=== PATIENT | female | born 1995 | race Two or more races ===

== ENCOUNTER 2020-04-24 16:53 | Inpatient (IN) | payer BC, SELFPAY ==
[~2020-04-24] VITALS: Ht 154.9 cm; Wt 77.5 kg
[2020-04-24 17:37] LABS: HEMATOCRIT 45.5 % (36.0-47.0); HEMOGLOBIN 15.4 g/dl (12.0-15.5); MEAN CORPUSCULAR HEMOGLOBIN 31.1 pg (27.0-33.0); MEAN CORPUSCULAR HGB CONC 33.8 g/dl (32.0-36.5); MEAN CORPUSCULAR VOLUME 91.9 fl (80.0-96.0); PLATELET COUNT, AUTOMATED 384 10^3/uL (150-450); RED BLOOD COUNT 4.95 10^6/uL (4.00-5.40)
[2020-04-24 18:04] LABS: HCG, SERUM QUALITATIVE NEGATIVE (NEGATIVE)
[2020-04-24 18:29] LABS: ACETAMINOPHEN LEVEL < 2.0 UG/ML (10.0-30.0); ALBUMIN 4.6 GM/DL (3.2-5.2); ALT/SGPT 53 U/L (12-78); BILIRUBIN,DIRECT 0.4 MG/DL (0.0-0.2); BILIRUBIN,TOTAL 2.1 MG/DL (0.2-1.0); BLOOD UREA NITROGEN 9 MG/DL (7-18); CALCIUM LEVEL 9.3 MG/DL (8.5-10.1); CARBON DIOXIDE LEVEL 26 MEQ/L (21-32); CHLORIDE LEVEL 103 MEQ/L (98-107); CREATININE FOR GFR 0.95 MG/DL (0.55-1.30); ETHYL ALCOHOL (ETHANOL) < 0.003 % (0.000-0.010); GLOMERULAR FILTRATION RATE > 60.0 (>60); GLUCOSE, FASTING 85 MG/DL (70-100); POTASSIUM SERUM 3.6 MEQ/L (3.5-5.1); SALICYLATE LEVEL < 1.7 MG/DL (5.0-30.0); SODIUM LEVEL 141 MEQ/L (136-145); THYROID STIMULATING HORMONE 0.733 uIU/ML (0.358-3.740); TOTAL PROTEIN 8.1 GM/DL (6.4-8.2)
[2020-04-24 19:42] LABS: AMPHETAMINES LEVEL URINE NEGATIVE (NEGATIVE); BARBITURATES URINE NEGATIVE (NEGATIVE); BENZODIAZEPINES URINE NEGATIVE (NEGATIVE); CANNABINOIDS URINE POSITIVE (NEGATIVE); COCAINE METABOLITE URINE NEGATIVE (NEGATIVE); METHADONE URINE NEGATIVE (NEGATIVE); OPIATES URINE NEGATIVE (NEGATIVE); PHENCYCLIDINE URINE NEGATIVE (NEGATIVE)
--- NOTE | 2020-04-24 20:09 | REPVR ---
PROCEDURE INFORMATION: Exam: CT Head Without Contrast Exam date and time: 04/24/2020 8:01 PM Age: 25 years old Clinical indication: Altered mental status/memory loss; Additional info: Alterd loc TECHNIQUE: Imaging protocol: Computed tomography of the head without contrast. Radiation optimization: All CT scans at this facility use at least one of these dose optimization techniques: automated exposure control; mA and/or kV adjustment per patient size (includes targeted exams where dose is matched to clinical indication); or iterative reconstruction. COMPARISON: No relevant prior studies available. FINDINGS: Brain: No intracranial mass, mass effect or midline shift. No acute intracranial hemorrhage. No CT evidence of acute cortical infarct. Ventricles: Ventricles, cisterns, and sulci are normal in size for age. Bones/joints: No calvarial fracture or destructive process. Sinuses: Imaged paranasal sinuses are clear. Mastoid air cells: Mastoid air cells are normally aerated. Orbits: Imaged orbits are unremarkable. Soft tissues: No focal extracranial soft tissue swelling. IMPRESSION: No acute or concerning focal intracranial abnormality. Electronically signed by: Zac Grover On 04/24/2020 20:08:58 PM
[2020-04-24] MEDS ORDERED: OLANZapine 5 MG TAB PO ONE (21:45)
[2020-04-25 04:07] VITALS: BP 149/84
[2020-04-25 15:47] VITALS: BP 171/82
--- NOTE | 2020-04-25 17:38 | HPEPDOC ---
General Date of Admission Apr 24, 2020 at 23:43 Date of Service: Apr 25, 2020 Chief Complaint The patient is a 25-year-old female admitted with a reason for visit of Unspecified Psychotic Disorder. Source: Patient Exam Limitations: No limitations Timing/Duration: Day(s) Severity: Moderate History of Present Illness Patient is 25 years old female without significant past medical history presented to the hospital with acute psychosis. Patient has tangental thoughts and she is a poor historian. Patient stated that she is in the process of transitioning from female to male and she takes testosterone supplementation. Patient is very concerned about possibility of cancer, she thinks she has an enlarged lymph nodes on the neck. However I did not find an large lymph node Patient denied fever, chills, nausea, vomiting, diarrhea or dysuria. Home Medications No Active Prescriptions or Reported Meds Allergies Coded Allergies: No Known Allergies (Verified Allergy, Unknown, 04/24/20) Past Medical History Medical History No significant past medical history Family History Both parents are alcoholics Father has coronary artery diseases Social History * Smoker: current smoker Alcohol: heavy Drugs: marijuana A-FIB/CHADSVASC A-FIB History Current/History of A-Fib/PAF?: No Current PO Anticoag Therapy: No Review of Systems Constitutional: Denies: Chills Eyes: Denies: Pain ENT: Denies: Head Aches Skin: Denies: Rash Pulmonary: Denies: Dyspnea Cardiovascular: Denies: Chest Pain Gastrointestinal: Denies: Nausea, Vomiting Genitourinary: Denies: Dysuria Hematologic: Denies: Bruising, Bleeding Excessively Endocrine: Denies: Polydipsia Musculoskeletal: Denies: Neck Pain Neurological: Denies: Weakness Psych: Denies: Mood Normal Physical Examination General Exam: Positive: Alert, Cooperative, Moderate Distress Eye Exam: Positive: PERRLA ENT Exam: Positive: Atraumatic Neck Exam: Positive: Supple; Negative: JVD Chest Exam: Positive: Clear to auscultation Heart Exam: Positive: Rate Normal Telemetry: Positive: No significant arrhythmia Abdomen Exam: Positive: Normal bowel sounds Extremity Exam: Negative: Clubbing Neuro Exam: Positive: Strength at 5/5 X4 ext Psych Exam: Negative: Mental status NL Vital Signs Vital Signs Date Time Temp Pulse Resp B/P (MAP) Pulse Ox O2 Delivery O2 Flow Rate FiO2 04/25/20 15:47 99.3 101 16 171/82 (111) 04/25/20 04:07 96 Room Air Laboratory Data Labs 24H Laboratory Tests 2 04/24/20 19:11: Urine Opiates Screen NEGATIVE, Urine Methadone Screen NEGATIVE, Urine Barbiturates Screen NEGATIVE, Urine Phencyclidine Screen NEGATIVE, Urine Amphetamines Screen NEGATIVE, Urine Benzodiazepines Screen NEGATIVE, Urine Cocaine Metabolite Screen NEGATIVE, Urine Cannabinoids Screen POSITIVEH Assessment/Plan Patient is 25 years old female without significant past medical history presented to the hospital with acute psychosis. Patient has tangental thoughts and she is a poor historian. Patient stated that she is in the process of transitioning from female to male and she takes testosterone supplementation. Patient is very concerned about possibility of cancer, she thinks she has an enlarged lymph nodes on the neck. However I did not find an large lymph node Patient denied fever, chills, nausea, vomiting, diarrhea or dysuria. Problems (1) Psychosis Status: Acute Problem Text: We'll defer treatment to psych team Plan / VTE VTE Prophylaxis Ordered?: No VTE Exclusion Mechanical Proph: Low Risk for VTE LISA STARR DO Apr 25, 2020 17:38
[2020-04-25] MEDS: OLANZapine 10 MG TAB PO SCH (21:54)
[2020-04-25] MEDS: traZODone 50 MG TAB PO PRN (21:54)
[2020-04-25] MEDS: OLANZapine ORAL DISINTEGRATING TAB 5MG PO PRN (23:29)
[2020-04-25] MEDS: ACETAMINOPHEN TAB 650MG DOSE (2X325MG) PO PRN (23:33)
[2020-04-26 06:28] VITALS: BP 142/79
--- NOTE | 2020-04-26 10:36 | MHHPE ---
DATE OF ADMISSION: 04/24/2020 DATE OF EVALUATION: 04/25/2020 HISTORY OF PRESENT ILLNESS: This evaluation is done telepsychiatry do to the current coronavirus crisis. This is a 25-year-old woman who is a transgender individual and prefers to be referred to as Héctor. The patient was brought to the hospital by [employer] police only this patient lives in [place] and had taken off driving to go visit a friend. She kept driving past where the friend lives. The car broke down and then she ended up walking to the friend wandering in the road and barefoot making no sense. She was taken to a motel and she got in contact with the mother who is going to give her money for bus ride home. However, the patient did not go home. The patient then called her mother and told her mother that there were evil voices telling her to keep driving north to [place], [place] are [place]. When asked how she was going to get there because she had no car. She talks about somebody named Leonel, whom she says is an actor on TV that is going to bring her a car. She is talking about having to close all the portals so all evil spirits will not be able to get through the portals. She talks about being telepathically connected to people. The mother apparently was contacted through the emergency room and advised that the patient has never had any psychotic episode before. She states that the patient was on Prozac for depression in the past but she stopped it in July because she found all of the patient's bottles. Today, speaking to the patient who appeared cooperative, however, I could not get any information that made any sense. The patient closed his eyes and kept lifting his head up and put his arms out and kept moving them in and out, in and out, basically was talking but it did not really make any sense what he was saying. So I was not able to get any further in this evaluation. PAST PSYCHIATRIC HISTORY: Unable to obtained. FAMILY HISTORY: Unable to obtain. SUBSTANCE ABUSE HISTORY: Unable to obtain. Toxicology screen was positive for cannabis. ABUSE HISTORY: Unable to obtain. MEDICAL HISTORY: Patient is transgender and on testosterone supplements once a week. REVIEW OF SYSTEMS: Vital Signs: Blood pressure 149/84, pulse 74, respirations 18. Unable to proceed with any review of systems. MENTAL STATUS EXAMINATION: Unable to obtain. DIAGNOSES: Unspecific psychotic disorder. Cannabis use disorder. TREATMENT PLAN: At this point, we will continue to monitor the patient for what appears to be psychotic symptoms. It will be important in this case to try to get some collateral information from the patient's mother. I did order some Zyprexa 10 mg every 4 hours for anxiety or agitation. I will go ahead and order some Zyprexa 10 mg nightly. He apparently was given some Zyprexa in the emergency room. GILMAR
[2020-04-26] MEDS: NICOTINE 21MG/24HR 1 EA TRANSDERMAL TD PRN (14:27)
[2020-04-26] MEDS: OLANZapine ORAL DISINTEGRATING TAB 5MG PO PRN (14:27)
[2020-04-26 16:32] VITALS: BP 131/75
--- NOTE | 2020-04-26 18:56 | MHIPN ---
DATE: 04/26/2020 The patient today continues to be pretty delusional. However, he is able to speak more spontaneously and answer some questions today. He has no insight about his illness. He states, "I just have a lot of kyree and no one believes in me. I encompass old spirits that I can, and it gives me the connectiveness I need." MENTAL STATUS EXAM: The patient is alert, oriented. Eye contact is improved. He is verbally spontaneous. There is no formal thought disorder noted. He says that his mood is good. Affect appropriate to the mood. The patient did not voice any suicidal or homicidal ideations. He has grandiose delusions, and her concentration is fair. Memory is intact. Insight and judgment is poor. DIAGNOSIS: Psychotic disorder, rule out unspecified bipolar disorder. Cannabis use disorder. TREATMENT PLAN: At this point, the patient continues to be very delusional. Her insight is very poor. She did take the Zyprexa 10 mg that I prescribed for her last night. We will continue to monitor the patient and see if we need to adjust her medications further. GILMAR
[2020-04-26] MEDS: OLANZapine 10 MG TAB PO SCH (20:02)
[2020-04-26] MEDS: traZODone 50 MG TAB PO PRN (20:02)
[2020-04-27] MEDS: OLANZapine ORAL DISINTEGRATING TAB 5MG PO PRN ×2 (03:42→17:12)
[2020-04-27 06:27] VITALS: BP 121/68
[2020-04-27] MEDS: NICOTINE 21MG/24HR 1 EA TRANSDERMAL TD PRN (07:52)
[2020-04-27] MEDS ORDERED: TESTOSTERONE CYPIONATE 200 MG/ML IM SCH ×2 (13:00→14:00)
[2020-04-27] MEDS ORDERED: NON-FORMULARY 1 EA EA IM SCH (13:00)
[2020-04-27] MEDS: TESTOSTERONE CYPIONATE 200 MG/ML XX SCH (14:21)
[2020-04-27] MEDS: ACETAMINOPHEN TAB 650MG DOSE (2X325MG) PO PRN (14:40)
[2020-04-27 16:23] VITALS: BP 143/84
[2020-04-27] MEDS: OLANZapine 5 MG TAB PO SCH (21:37)
[2020-04-27] MEDS: traZODone 50 MG TAB PO PRN (21:37)
[2020-04-28] MEDS: ACETAMINOPHEN TAB 650MG DOSE (2X325MG) PO PRN ×2 (05:10→14:39)
[2020-04-28 06:20] VITALS: BP 140/77
--- NOTE | 2020-04-28 09:19 | MHIPNPDOC ---
[facility] [place] DATE OF SERVICE: 04/28/20 HPI: Yessi presents today for concerns regarding her mental mental health . Yessi does remember walking into the hospital. Yessi denies any suicidal suicidal t houghts , homicidal thoughts, and hallucinations. MEDICATIONS: She is on Zyprexa during her stay, and was seen by Dr. Eagle Sunday, which means the dose was likely increased . Objective Appearance: Appears fair. Speech: Soft volume. Normal rate. Cognition: Grossly intact. Associations are mildly loosened. Thought Form: Linear thought process is somewhat circumstantial. Thought Content: Devising suicidal or homicidal ideations. Perception: Mild psychotic perceptions. Assessment F29 Unspecified psychosis not due to a substance or known physiological condition F12.959 Cannabis use, unspecified with psychotic disorder, unspecified Plan She is a 25-year-old transgendered man, who presents In a psychotic state. Making some progress on Zyprexa 15 mg. She will continue Zyprexa 15 mg. Further plan for discharge as he returns to baseline. Further collateral formation will likely determine the patients baseline and what would be the most judicious discharge plan at this time. Vital Signs Vital Signs Date Time Temp Pulse Resp B/P (MAP) Pulse Ox O2 Delivery O2 Flow Rate FiO2 04/28/20 06:20 97.1 112 18 140/77 (98) Room Air 04/27/20 06:27 98 Current Medications Current Medications Medications (Trade) Dose Ordered Sig/Kenrick Route PRN Reason Start Time Stop Time Status Last Admin Dose Admin Acetaminophen (Tylenol Tab) 650 mg Q6HP PRN PO PAIN / FEVER 04/25/20 06:00 04/28/20 05:10 Al Hydrox/Mg Hydrox/Simethicone (Mylanta) 30 ml Q6HP PRN PO HEARTBURN 04/25/20 06:00 Home Med (Med Rec Complete!) ASDIRECTED XX 04/24/20 20:45 04/24/20 20:38 DC Magnesium Hydroxide (Milk Of Magnesia) 30 ml DAILYPRN PRN PO CONSTIPATION 04/25/20 06:00 Nicotine (Nicoderm Cq 21mg) 1 patch DAILYPRN PRN TD NICOTINE WITHDRAWAL 04/25/20 06:30 04/27/20 07:52 Non-Formulary Medication Testosterone Cypiionate 200 mg/1... Q7D IM 04/27/20 13:00 04/26/20 15:59 DC Olanzapine (ZyPREXA ZYDIS) 10 mg Q4HP PRN PO anxiety/agitation 04/25/20 02:00 04/27/20 17:12 Olanzapine (ZyPREXA) 10 mg QHS PO 04/25/20 21:00 04/27/20 12:54 DC 04/26/20 20:02 Olanzapine (ZyPREXA) 15 mg QHS PO 04/27/20 21:00 04/27/20 21:37 Testosterone Cypionate (Depo-Testosterone) 60 mg Q7D IM 04/27/20 13:00 04/27/20 13:09 DC Testosterone Cypionate (Testosterone Cypionate) 60 mg Q7D IM 04/27/20 14:00 04/27/20 14:19 DC Testosterone Cypionate (Testosterone Cypionate) 60 mg Q7D XX 04/27/20 14:19 04/27/20 14:21 Trazodone HCl (Desyrel) 50 mg QHSP PRN PO INSOMNIA 04/25/20 06:00 04/27/20 21:37 Allergies Coded Allergies: No Known Allergies (Verified Allergy, Unknown, 04/24/20) MARY LEAHY DO Apr 28, 2020 09:19
[2020-04-28] MEDS: NICOTINE 21MG/24HR 1 EA TRANSDERMAL TD PRN (13:03)
[2020-04-28] MEDS: OLANZapine ORAL DISINTEGRATING TAB 5MG PO PRN (13:04)
--- NOTE | 2020-04-28 14:45 | MHIPN ---
DATE OF SERVICE: 04/27/2020 The patient was seen via telepsychiatry due to the Coronavirus crisis. The patient was reported to have been taking her clothes off last night. Tried to pull the fire alarm. She was talking about dark and light entities and how she sees them at night. When asked today how she was doing, she said "really, really good today." She admitted that "I keep hearing and seeing things that are not real." She says that she found out that her family is the Gil family, but that her real mother saved her. MENTAL STATUS EXAMINATION: This patient is alert ands oriented times three. Eye contact is fair. Psychomotor activity is increased. She does have some pressured speech, flight of ideas. She says her mood is very, very good but her affect is some labile. She remains acutely delusional. She denies being suicidal or homicidal. Concentration is fair. Memory intact. Insight and judgment poor. DIAGNOSIS: Unspecified psychotic disorder, rule out bipolar disorder. Cannabis use disorder. TREATMENT PLAN: At this point, the patient continues to be very delusional. She is tolerating her Zyprexa. I will go ahead and increase the Zyprexa to 15 mg a day. MTDD
[2020-04-28 16:21] VITALS: BP 136/72
[2020-04-28] MEDS: traZODone 50 MG TAB PO PRN (20:16)
[2020-04-28] MEDS: OLANZapine 5 MG TAB PO SCH (20:16)
[2020-04-29] MEDS ORDERED: haloperidoL 5 MG TAB PO ONE (00:30)
[2020-04-29 06:11] VITALS: BP 131/74
[2020-04-29] MEDS: ACETAMINOPHEN TAB 650MG DOSE (2X325MG) PO PRN ×2 (06:59→23:02)
--- NOTE | 2020-04-29 09:44 | MHIPNPDOC ---
[facility] Progress Note Progress Note DATE OF SERVICE: 04/29/20 Yessi presents today for concerns regarding her follow up. She had an accident where she had an episode and poured water on herself. She also complains of havi ng trouble sleeping. Yessi describes some side effects of her medication. She says that her face gets bright red, and it feels like it is getting hot. She also complains of sinus problems. MEDICATIONS: Yessi is taking Zyprexa. She is also taking Trazadone. She is also taking Haldol. Objective Appearance: Well nourished. Well groomed. Behavior: Pleasant. Engaged. Affect:blunted range Mood: flat Speech: Speech is slowed and monotonus. Normal volume. Motor: No gross motor abnormalities. Cognition: Perceptions appear to be presen but flat. Memory: No gross abnormalities of short or longterm memory noted during interview. No formal testing. Thought Form: Linear and goal directed. Not entirely logical. Thought Content: No thoughts of self harm. No evidence of aggressive or homicidal ideation. No evidence of delusions. No evidence of suicidal ideation. Perception: No perceptual abnormalities noted. Judgement: limited Insight: limited Assessment F29 Unspecified psychosis not due to a substance or known physiological condition Plan Increase Zyprexa to 5 mg in the morning and 15 mg at night. Start Protonix. Start 50 mg Hydroxyzine. Start using Afrin for nasal congestion. Start gerd treatment. Stop Trazadone. If Zyprexa does not continue to improve the symptoms significantly, will need to see about changing agents. No discharge date as of yet. Vital Signs Vital Signs Date Time Temp Pulse Resp B/P (MAP) Pulse Ox O2 Delivery O2 Flow Rate FiO2 04/29/20 06:11 97.1 76 12 131/74 (93) Room Air 04/27/20 06:27 98 Current Medications Current Medications Medications (Trade) Dose Ordered Sig/Kenrick Route PRN Reason Start Time Stop Time Status Last Admin Dose Admin Acetaminophen (Tylenol Tab) 650 mg Q6HP PRN PO PAIN / FEVER 04/25/20 06:00 04/29/20 06:59 Al Hydrox/Mg Hydrox/Simethicone (Mylanta) 30 ml Q6HP PRN PO HEARTBURN 04/25/20 06:00 Home Med (Med Rec Complete!) ASDIRECTED XX 04/24/20 20:45 04/24/20 20:38 DC Magnesium Hydroxide (Milk Of Magnesia) 30 ml DAILYPRN PRN PO CONSTIPATION 04/25/20 06:00 Nicotine (Nicoderm Cq 21mg) 1 patch DAILYPRN PRN TD NICOTINE WITHDRAWAL 04/25/20 06:30 04/28/20 13:03 Non-Formulary Medication Testosterone Cypiionate 200 mg/1... Q7D IM 04/27/20 13:00 04/26/20 15:59 DC Olanzapine (ZyPREXA ZYDIS) 10 mg Q4HP PRN PO anxiety/agitation 04/25/20 02:00 04/28/20 13:04 Olanzapine (ZyPREXA) 10 mg QHS PO 04/25/20 21:00 04/27/20 12:54 DC 04/26/20 20:02 Olanzapine (ZyPREXA) 15 mg QHS PO 04/27/20 21:00 04/28/20 20:16 Testosterone Cypionate (Depo-Testosterone) 60 mg Q7D IM 04/27/20 13:00 04/27/20 13:09 DC Testosterone Cypionate (Testosterone Cypionate) 60 mg Q7D IM 04/27/20 14:00 04/27/20 14:19 DC Testosterone Cypionate (Testosterone Cypionate) 60 mg Q7D XX 04/27/20 14:19 04/27/20 14:21 Trazodone HCl (Desyrel) 50 mg QHSP PRN PO INSOMNIA 04/25/20 06:00 04/28/20 20:16 Allergies Coded Allergies: No Known Allergies (Verified Allergy, Unknown, 04/24/20) MARY LEAHY DO Apr 29, 2020 09:44
[2020-04-29] MEDS: OLANZapine ORAL DISINTEGRATING TAB 5MG PO PRN (09:53)
[2020-04-29] MEDS: NICOTINE 21MG/24HR 1 EA TRANSDERMAL TD PRN (11:28)
[2020-04-29] MEDS ORDERED: hydrOXYzine 50 MG TAB PO PRN (16:15)
[2020-04-29 17:38] VITALS: BP 144/85
[2020-04-29] MEDS: PANTOPRAZOLE 20 MG TAB PO SCH (18:07)
[2020-04-29] MEDS: hydrOXYzine 50 MG TAB PO PRN (20:56)
[2020-04-29] MEDS: OLANZapine 5 MG TAB PO SCH (20:57)
[2020-04-30] MEDS: OLANZapine ORAL DISINTEGRATING TAB 5MG PO PRN (03:51)
[2020-04-30 06:45] VITALS: BP 138/79
[2020-04-30] MEDS ORDERED: ONDANSETRON 4 MG ORAL DISINTEGRATING TAB SL ONE (07:00)
[2020-04-30] MEDS: PANTOPRAZOLE 20 MG TAB PO SCH (08:25)
[2020-04-30] MEDS: OLANZapine 5 MG TAB PO SCH ×2 (08:25→21:16)
[2020-04-30] MEDS: OXYMETAZOLINE 0.05% NASAL SPRAY (AFRIN) PRN (08:26)
[2020-04-30] MEDS: NICOTINE 21MG/24HR 1 EA TRANSDERMAL TD PRN (08:26)
--- NOTE | 2020-04-30 09:21 | MHIPNPDOC ---
[facility] Progress Note Progress Note DATE OF SERVICE: 04/30/20 Keshia presents today for a follow up. He says he is feeling really good today. He says his confusion is clearing up. He does not have any side effects, such as headaches, vision changes, stomach issues, shakiness, or jitteriness; but he has been nauseous. He is still delusional, the nurse notes that this morning she was talking about being molested, but is better in this afternoon. The nurse notes there is an improvement with the medication. MEDICATIONS: The increased Zyprexa for the morning dose, works a lot better for him. He says he is having trouble falling asleep. He is not taking Hydroxyzine, but he can ask for it if needed. He was initially on 20 mg of Protonix and will increase to 40 mg, as requested, which will help with the upset stomach from Zyprexa. Objective Affect: Bizzare with psychotic perceptions. Dissheveled flat affect. Speech: Very soft voice. Normal rate. Motor: Demonstrates some slowing. Cognition: Appears slowed. Judgement: Poor judgement. Assessment F29 Unspecified psychosis not due to a substance or known physiological condition Plan Continue Zyprexa, 5/15 mg per day. Take Hydroxyzine 50 mg at night as needed for sleep. Will need continued observation. Increase Protonix to 40 mg daily for upset stomach related to GI. Discuss with oncoming physician for disposition and further treatment. If he does not resolve well with the Zyprexa, consider alternative agents, as he is making slow progress at this time. Vital Signs Vital Signs Date Time Temp Pulse Resp B/P (MAP) Pulse Ox O2 Delivery O2 Flow Rate FiO2 04/30/20 06:45 98.3 85 14 138/79 (98) Room Air 04/29/20 17:38 98 Current Medications Current Medications Medications (Trade) Dose Ordered Sig/Kenrick Route PRN Reason Start Time Stop Time Status Last Admin Dose Admin Acetaminophen (Tylenol Tab) 650 mg Q6HP PRN PO PAIN / FEVER 04/25/20 06:00 04/29/20 23:02 Al Hydrox/Mg Hydrox/Simethicone (Mylanta) 30 ml Q6HP PRN PO HEARTBURN 04/25/20 06:00 Home Med (Med Rec Complete!) ASDIRECTED XX 04/24/20 20:45 04/24/20 20:38 DC Hydroxyzine HCl (Atarax) 50 mg QHSP PRN PO sleep 04/29/20 16:30 04/29/20 20:56 Hydroxyzine HCl (Atarax) 100 mg QHSP PRN PO sleep 04/29/20 16:15 04/29/20 16:16 DC Magnesium Hydroxide (Milk Of Magnesia) 30 ml DAILYPRN PRN PO CONSTIPATION 04/25/20 06:00 Nicotine (Nicoderm Cq 21mg) 1 patch DAILYPRN PRN TD NICOTINE WITHDRAWAL 04/25/20 06:30 04/30/20 08:26 Non-Formulary Medication Testosterone Cypiionate 200 mg/1... Q7D IM 04/27/20 13:00 04/26/20 15:59 DC Olanzapine (ZyPREXA ZYDIS) 10 mg Q4HP PRN PO anxiety/agitation 04/25/20 02:00 04/30/20 03:51 Olanzapine (ZyPREXA) 5 mg DAILY PO 04/30/20 09:00 04/30/20 08:25 Olanzapine (ZyPREXA) 10 mg QHS PO 04/25/20 21:00 04/27/20 12:54 DC 04/26/20 20:02 Olanzapine (ZyPREXA) 15 mg QHS PO 04/27/20 21:00 04/29/20 20:57 Oxymetazoline HCl (Afrin) 2 spray BIDP PRN NA nasal congestion 04/29/20 16:15 04/30/20 08:26 Pantoprazole Sodium (Protonix) 20 mg DAILY PO 04/29/20 09:00 04/30/20 08:25 Testosterone Cypionate (Depo-Testosterone) 60 mg Q7D IM 04/27/20 13:00 04/27/20 13:09 DC Testosterone Cypionate (Testosterone Cypionate) 60 mg Q7D IM 04/27/20 14:00 04/27/20 14:19 DC Testosterone Cypionate (Testosterone Cypionate) 60 mg Q7D XX 04/27/20 14:19 04/27/20 14:21 Trazodone HCl (Desyrel) 50 mg QHSP PRN PO INSOMNIA 04/25/20 06:00 04/29/20 16:14 AK 04/28/20 20:16 Allergies Coded Allergies: No Known Allergies (Verified Allergy, Unknown, 04/24/20) MARY LEAHY DO Apr 30, 2020 09:21
[2020-04-30] MEDS: MAALOX 30 ML SUSP *UDC PO PRN (11:08)
[2020-04-30] MEDS: ACETAMINOPHEN TAB 650MG DOSE (2X325MG) PO PRN ×2 (15:48→23:12)
[2020-04-30 16:04] VITALS: BP 135/85
[2020-04-30] MEDS: hydrOXYzine 50 MG TAB PO PRN (21:16)
[2020-04-30] MEDS ORDERED: haloperidoL 5 MG TAB PO ONE (23:00)
[2020-05-01 06:17] VITALS: BP 129/77
[2020-05-01] MEDS: PANTOPRAZOLE 20 MG TAB PO SCH (08:42)
[2020-05-01] MEDS: OLANZapine 5 MG TAB PO SCH ×2 (08:42→20:09)
[2020-05-01] MEDS: OLANZapine ORAL DISINTEGRATING TAB 5MG PO PRN (13:48)
[2020-05-01] MEDS: ACETAMINOPHEN TAB 650MG DOSE (2X325MG) PO PRN ×2 (13:49→20:10)
[2020-05-01 16:10] VITALS: BP 140/72
[2020-05-01] MEDS: OXYMETAZOLINE 0.05% NASAL SPRAY (AFRIN) PRN (20:52)
[2020-05-01] MEDS: hydrOXYzine 50 MG TAB PO PRN (20:54)
[2020-05-02] MEDS: MAALOX 30 ML SUSP *UDC PO PRN (05:25)
[2020-05-02 06:24] VITALS: BP 132/90
[2020-05-02] MEDS: OLANZapine 5 MG TAB PO SCH ×2 (09:06→20:19)
[2020-05-02] MEDS: PANTOPRAZOLE 20 MG TAB PO SCH (09:06)
[2020-05-02] MEDS: ACETAMINOPHEN TAB 650MG DOSE (2X325MG) PO PRN ×3 (09:08→22:56)
[2020-05-02] MEDS: OLANZapine ORAL DISINTEGRATING TAB 5MG PO PRN (16:05)
[2020-05-02 16:07] VITALS: BP 133/80
[2020-05-02] MEDS: NICOTINE 21MG/24HR 1 EA TRANSDERMAL TD PRN (16:49)
[2020-05-02] MEDS: hydrOXYzine 50 MG TAB PO PRN (20:18)
[2020-05-02] MEDS: OXYMETAZOLINE 0.05% NASAL SPRAY (AFRIN) PRN (20:18)
[2020-05-03 06:24] VITALS: BP 139/89
[2020-05-03] MEDS: MAALOX 30 ML SUSP *UDC PO PRN (06:25)
[2020-05-03] MEDS: ACETAMINOPHEN TAB 650MG DOSE (2X325MG) PO PRN ×3 (06:25→21:26)
[2020-05-03] MEDS: hydrOXYzine 50 MG TAB PO PRN (07:08)
[2020-05-03] MEDS: OLANZapine 5 MG TAB PO SCH ×2 (09:12→21:25)
[2020-05-03] MEDS: PANTOPRAZOLE 20 MG TAB PO SCH (09:12)
[2020-05-03] MEDS: OLANZapine ORAL DISINTEGRATING TAB 5MG PO PRN (12:45)
[2020-05-03] MEDS: OXYMETAZOLINE 0.05% NASAL SPRAY (AFRIN) PRN (15:48)
[2020-05-03 15:56] VITALS: BP 124/71
--- NOTE | 2020-05-03 19:59 | MHIPNPDOC ---
[facility] Progress Note Progress Note DATE OF SERVICE: 05/03/20 Patient reportedly did not want to participate in the video session--he is being closely monitored at this point by nursing staff--today he did take his a.m. Zyprexa 5 mg--he also took the 50 mg of hydroxyzine in the morning--and reportedly he did take the olanzapine 15 mg last evening at bedtime--his case was discussed in nursing/treatment planning rounds--- at this point he is remaining under an involuntary commitment at 9.39--- he remains delusional and is yet unable to participate fully in the treatment program because of his uncooperativeness and delusional behavior--he will remain under close observation I will attempt to see him again tomorrow Vital Signs Vital Signs Date Time Temp Pulse Resp B/P (MAP) Pulse Ox O2 Delivery O2 Flow Rate FiO2 05/03/20 15:56 98.8 71 16 124/71 (88) 05/03/20 10:07 Room Air 05/03/20 06:24 98 Current Medications Current Medications Medications (Trade) Dose Ordered Sig/Kenrick Route PRN Reason Start Time Stop Time Status Last Admin Dose Admin Acetaminophen (Tylenol Tab) 650 mg Q6HP PRN PO PAIN / FEVER 04/25/20 06:00 05/03/20 13:54 Al Hydrox/Mg Hydrox/Simethicone (Mylanta) 30 ml Q6HP PRN PO HEARTBURN 04/25/20 06:00 05/03/20 06:25 Home Med (Med Rec Complete!) ASDIRECTED XX 04/24/20 20:45 04/24/20 20:38 DC Hydroxyzine HCl (Atarax) 50 mg QHSP PRN PO sleep 04/29/20 16:30 05/03/20 07:08 Hydroxyzine HCl (Atarax) 100 mg QHSP PRN PO sleep 04/29/20 16:15 04/29/20 16:16 DC Magnesium Hydroxide (Milk Of Magnesia) 30 ml DAILYPRN PRN PO CONSTIPATION 04/25/20 06:00 Miscellaneous (Unresolved Clarification Entry) SEE LABEL COMMENTS DAILY XX 05/03/20 09:00 Nicotine (Nicoderm Cq 21mg) 1 patch DAILYPRN PRN TD NICOTINE WITHDRAWAL 04/25/20 06:30 05/02/20 16:49 Non-Formulary Medication Testosterone Cypiionate 200 mg/1... Q7D IM 04/27/20 13:00 04/26/20 15:59 DC Olanzapine (ZyPREXA ZYDIS) 10 mg Q4HP PRN PO anxiety/agitation 04/25/20 02:00 05/03/20 12:45 Olanzapine (ZyPREXA) 5 mg DAILY PO 04/30/20 09:00 05/03/20 09:12 Olanzapine (ZyPREXA) 10 mg QHS PO 04/25/20 21:00 04/27/20 12:54 DC 04/26/20 20:02 Olanzapine (ZyPREXA) 15 mg QHS PO 04/27/20 21:00 05/02/20 20:19 Oxymetazoline HCl (Afrin) 2 spray BIDP PRN NA nasal congestion 04/29/20 16:15 05/03/20 15:48 Pantoprazole Sodium (Protonix) 20 mg DAILY PO 04/29/20 09:00 05/03/20 09:12 Testosterone Cypionate (Depo-Testosterone) 60 mg Q7D IM 04/27/20 13:00 04/27/20 13:09 DC Testosterone Cypionate (Testosterone Cypionate) 60 mg Q7D IM 04/27/20 14:00 04/27/20 14:19 DC Testosterone Cypionate (Testosterone Cypionate) 60 mg Q7D XX 04/27/20 14:19 04/27/20 14:21 Trazodone HCl (Desyrel) 50 mg QHSP PRN PO INSOMNIA 04/25/20 06:00 04/29/20 16:14 DC 04/28/20 20:16 Allergies Coded Allergies: No Known Allergies (Verified Allergy, Unknown, 04/24/20) Saeid Cuba MD May 03, 2020 19:59
[2020-05-04] MEDS: hydrOXYzine 50 MG TAB PO PRN (04:32)
[2020-05-04] MEDS: ACETAMINOPHEN TAB 650MG DOSE (2X325MG) PO PRN ×3 (04:32→21:04)
[2020-05-04] MEDS: MOM 30ML SUSPENSION UDC PO PRN (06:02)
[2020-05-04 06:15] VITALS: BP 141/88
[2020-05-04] MEDS: PANTOPRAZOLE 20 MG TAB PO SCH (09:10)
[2020-05-04] MEDS: OLANZapine 5 MG TAB PO SCH ×2 (09:10→21:03)
[2020-05-04] MEDS: OXYMETAZOLINE 0.05% NASAL SPRAY (AFRIN) PRN (09:11)
[2020-05-04] MEDS: TESTOSTERONE CYPIONATE 200 MG/ML XX SCH (14:19)
[2020-05-04] MEDS: OLANZapine ORAL DISINTEGRATING TAB 5MG PO PRN (16:56)
[2020-05-04 17:04] VITALS: BP 146/75
[2020-05-04] MEDS: MAALOX 30 ML SUSP *UDC PO PRN (18:42)
--- NOTE | 2020-05-04 18:46 | MHIPNPDOC ---
[facility] Progress Note Progress Note DATE OF SERVICE: 05/04/20 funmi was seen for medical psychotherapy today Patient was seen for a medical psychotherapy session in which the patient's t reatment plan was reviewed, mental status exam performed, vital signs reviewed, current medical conditions reviewed, and treatment goals were reviewed This visit was performed as a telehealth visit utilizing an interactive a/v telecommunications system or telephone that permitted real time communication between myself and the patient--permission/consent from patient/guardian was obtained Patient is currently being treated for psychotic/delusional thinking--for that condition he is currently taking Zyprexa 5 mg in the morning and 15 mg at night He is gaining some insights into the indications for the medication and the specifics with regard to his psychiatric disorder No changes in medication today He is participating in milieu activities although he remains delusional MENTAL STATUS EXAM Level of consciousness--patient was alert and oriented to time place person Appearance-normal posture, normal dress, no prominent physical abnormalities, alert, cooperative Behavior--like to good, no psychomotor agitation or retardation, no abnormal movements, no tremor Speech--normal rate and rhythm--normal volume Mood--euthymic Affect--normal range and consistent with mood--stable Thought processes--logical and linear , goal directed and coherent--no thought blocking or flight of ideas, no loose associations, no tangential thinking, no word salad, no thought blocking, no circumstantiality Thought content--ideas of reference no auditory or visual hallucinations, de lusional thinking, no thoughts of derealization or depersonalization, no obsessive thinking, no expressed phobias, Cognition--patient was alert and able to focus-sustained appropriate mental attention-memory immediate and short-term memory intact-abstract thinking present, Insight---fair Judgment or the ability to anticipate consequences of behavior intact Patient denied any suicidal ideation or impulses Patient denied any homicidal impulses or ideation Vital Signs Vital Signs Date Time Temp Pulse Resp B/P (MAP) Pulse Ox O2 Delivery O2 Flow Rate FiO2 05/04/20 17:04 98.2 72 16 146/75 (98) 05/04/20 06:15 100 Room Air Current Medications Current Medications Medications (Trade) Dose Ordered Sig/Kenrick Route PRN Reason Start Time Stop Time Status Last Admin Dose Admin Acetaminophen (Tylenol Tab) 650 mg Q6HP PRN PO PAIN / FEVER 04/25/20 06:00 05/04/20 14:20 Al Hydrox/Mg Hydrox/Simethicone (Mylanta) 30 ml Q6HP PRN PO HEARTBURN 04/25/20 06:00 05/04/20 18:42 Home Med (Med Rec Complete!) ASDIRECTED XX 04/24/20 20:45 04/24/20 20:38 DC Hydroxyzine HCl (Atarax) 50 mg QHSP PRN PO sleep 04/29/20 16:30 05/04/20 04:32 Hydroxyzine HCl (Atarax) 100 mg QHSP PRN PO sleep 04/29/20 16:15 04/29/20 16:16 DC Magnesium Hydroxide (Milk Of Magnesia) 30 ml DAILYPRN PRN PO CONSTIPATION 04/25/20 06:00 05/04/20 06:02 Miscellaneous (Unresolved Clarification Entry) SEE LABEL COMMENTS DAILY XX 05/03/20 09:00 Nicotine (Nicoderm Cq 21mg) 1 patch DAILYPRN PRN TD NICOTINE WITHDRAWAL 04/25/20 06:30 05/02/20 16:49 Non-Formulary Medication Testosterone Cypiionate 200 mg/1... Q7D IM 04/27/20 13:00 04/26/20 15:59 DC Olanzapine (ZyPREXA ZYDIS) 10 mg Q4HP PRN PO anxiety/agitation 04/25/20 02:00 05/04/20 16:56 Olanzapine (ZyPREXA) 5 mg DAILY PO 04/30/20 09:00 05/04/20 09:10 Olanzapine (ZyPREXA) 10 mg QHS PO 04/25/20 21:00 04/27/20 12:54 DC 04/26/20 20:02 Olanzapine (ZyPREXA) 15 mg QHS PO 04/27/20 21:00 05/03/20 21:25 Oxymetazoline HCl (Afrin) 2 spray BIDP PRN NA nasal congestion 04/29/20 16:15 05/04/20 09:11 Pantoprazole Sodium (Protonix) 20 mg DAILY PO 04/29/20 09:00 05/04/20 09:10 Testosterone Cypionate (Depo-Testosterone) 60 mg Q7D IM 04/27/20 13:00 04/27/20 13:09 DC Testosterone Cypionate (Testosterone Cypionate) 60 mg Q7D IM 04/27/20 14:00 04/27/20 14:19 DC Testosterone Cypionate (Testosterone Cypionate) 60 mg Q7D XX 04/27/20 14:19 05/04/20 14:18 DC 05/04/20 14:19 Trazodone HCl (Desyrel) 50 mg QHSP PRN PO INSOMNIA 04/25/20 06:00 04/29/20 16:14 DC 04/28/20 20:16 Allergies Coded Allergies: No Known Allergies (Verified Allergy, Unknown, 04/24/20) Saeid Cuba MD May 04, 2020 18:46
[2020-05-05] MEDS: OLANZapine ORAL DISINTEGRATING TAB 5MG PO PRN ×2 (03:51→13:24)
[2020-05-05 06:37] VITALS: BP 128/73
[2020-05-05] MEDS: OXYMETAZOLINE 0.05% NASAL SPRAY (AFRIN) PRN (06:57)
[2020-05-05] MEDS: ACETAMINOPHEN TAB 650MG DOSE (2X325MG) PO PRN ×2 (06:58→13:24)
[2020-05-05] MEDS: PANTOPRAZOLE 20 MG TAB PO SCH (08:28)
[2020-05-05] MEDS: MOM 30ML SUSPENSION UDC PO PRN (08:28)
[2020-05-05] MEDS: OLANZapine 5 MG TAB PO SCH ×2 (08:28→20:56)
[2020-05-05] MEDS: NICOTINE 21MG/24HR 1 EA TRANSDERMAL TD PRN (18:52)
--- NOTE | 2020-05-05 19:53 | MHIPNPDOC ---
[facility] Progress Note Progress Note DATE OF SERVICE: 05/05/20 Digna was seen on medical psychotherapy rounds 20 minutes was spent with patient Patient was seen for a medical psychotherapy session in which the patient's treatment plan was reviewed, mental status exam performed, vital signs reviewed, current medical conditions reviewed, and treatment goals were reviewed This visit was performed as a telehealth visit utilizing an interactive a/v telecommunications system or telephone that permitted real time communication between myself and the patient--permission/consent from patient/guardian was obtained Digna is now 25 years of age and he is currently being treated or delusional thinking and depressive illness His current medication includes Zyprexa 15 mg at night and 5 mg in the morning The medication is directed at his delusional thinking but unfortunately that type of thinking process The patient did complain of peripheral pain today and was requesting medication for such a condition stating that the Tylenol he was taking is not effective--we talked about the various options and decided to start a course of Neurontin 100 mg 3 times a day along with changing the Tylenol to Motrin MENTAL STATUS EXAM Level of consciousness--patient was alert and oriented to time place person Appearance-normal posture, normal dress, no prominent physical abnormalities, alert, cooperative Behavior--like to good, no psychomotor agitation or retardation, no abnormal movements, no tremor Speech--normal rate and rhythm--normal volume Mood--euthymic Affect--flat Thought processes--logical and linear , goal directed and coherent--no thought blocking or flight of ideas, no loose associations, no t angential thinking, no word salad, no thought blocking, no circumstantiality Thought content--no ideas of reference no auditory or visual hallucinations,delusional thinking, no thoughts of derealization or depersonaliz ation, no obsessive thinking, no expressed phobias, Cognition--patient was alert and able to focus-sustained appropriate mental attention-memory immediate and short-term memory intact-abstract thinking present, Insight---fair Judgment or the ability to anticipate consequences of behavior intact Patient denied any suicidal ideation or impulses Patient denied any homicidal impulses or ideation I will see the patient again tomorrow No other changes in the treatment plan Vital Signs Vital Signs Date Time Temp Pulse Resp B/P (MAP) Pulse Ox O2 Delivery O2 Flow Rate FiO2 05/05/20 06:37 97.9 86 12 128/73 (91) Room Air 05/04/20 06:15 100 Current Medications Current Medications Medications (Trade) Dose Ordered Sig/Kenrick Route PRN Reason Start Time Stop Time Status Last Admin Dose Admin Acetaminophen (Tylenol Tab) 650 mg Q6HP PRN PO PAIN / FEVER 04/25/20 06:00 05/05/20 13:24 Al Hydrox/Mg Hydrox/Simethicone (Mylanta) 30 ml Q6HP PRN PO HEARTBURN 04/25/20 06:00 05/04/20 18:42 Home Med (Med Rec Complete!) ASDIRECTED XX 04/24/20 20:45 04/24/20 20:38 DC Hydroxyzine HCl (Atarax) 50 mg QHSP PRN PO sleep 04/29/20 16:30 05/04/20 04:32 Hydroxyzine HCl (Atarax) 100 mg QHSP PRN PO sleep 04/29/20 16:15 04/29/20 16:16 DC Magnesium Hydroxide (Milk Of Magnesia) 30 ml DAILYPRN PRN PO CONSTIPATION 04/25/20 06:00 05/05/20 08:28 Miscellaneous (Unresolved Clarification Entry) SEE LABEL COMMENTS DAILY XX 05/03/20 09:00 Cancel Nicotine (Nicoderm Cq 21mg) 1 patch DAILYPRN PRN TD NICOTINE WITHDRAWAL 04/25/20 06:30 05/05/20 18:52 Non-Formulary Medication Testosterone Cypiionate 200 mg/1... Q7D IM 04/27/20 13:00 04/26/20 15:59 DC Olanzapine (ZyPREXA ZYDIS) 10 mg Q4HP PRN PO anxiety/agitation 04/25/20 02:00 05/05/20 13:24 Olanzapine (ZyPREXA) 5 mg DAILY PO 04/30/20 09:00 05/05/20 08:28 Olanzapine (ZyPREXA) 10 mg QHS PO 04/25/20 21:00 04/27/20 12:54 DC 04/26/20 20:02 Olanzapine (ZyPREXA) 15 mg QHS PO 04/27/20 21:00 05/04/20 21:03 Oxymetazoline HCl (Afrin) 2 spray BIDP PRN NA nasal congestion 04/29/20 16:15 7/1/20 06:57 Pantoprazole Sodium (Protonix) 20 mg DAILY PO 04/29/20 09:00 05/05/20 08:28 Testosterone Cypionate (Depo-Testosterone) 60 mg Q7D IM 04/27/20 13:00 04/27/20 13:09 DC Testosterone Cypionate (Testosterone Cypionate) 60 mg Q7D IM 04/27/20 14:00 04/27/20 14:19 DC Testosterone Cypionate (Testosterone Cypionate) 60 mg Q7D XX 04/27/20 14:19 05/04/20 14:18 DC 05/04/20 14:19 Trazodone HCl (Desyrel) 50 mg QHSP PRN PO INSOMNIA 04/25/20 06:00 04/29/20 16:14 DC 04/28/20 20:16 Allergies Coded Allergies: No Known Allergies (Verified Allergy, Unknown, 04/24/20) Saeid Cuba MD May 05, 2020 19:53
[2020-05-05] MEDS: GABAPENTIN 100 MG CAP PO SCH (20:56)
[2020-05-05] MEDS: IBUPROFEN 400 MG TAB PO PRN (20:57)
[2020-05-05] MEDS: hydrOXYzine 50 MG TAB PO PRN (20:57)
[2020-05-06] MEDS: OXYMETAZOLINE 0.05% NASAL SPRAY (AFRIN) PRN ×2 (04:55→21:28)
[2020-05-06] MEDS: OLANZapine ORAL DISINTEGRATING TAB 5MG PO PRN ×3 (04:55→22:56)
[2020-05-06 06:19] VITALS: BP 130/77
[2020-05-06] MEDS: GABAPENTIN 100 MG CAP PO SCH ×3 (08:13→21:30)
[2020-05-06] MEDS: OLANZapine 5 MG TAB PO SCH ×2 (08:14→21:28)
[2020-05-06] MEDS: PANTOPRAZOLE 20 MG TAB PO SCH (08:14)
--- NOTE | 2020-05-06 14:32 | MHIPNPDOC ---
[facility] Progress Note Progress Note DATE OF SERVICE: 05/06/20 Digna was seen for medical psychotherapy 20 minutes was spent with the patient Patient was seen for a medical psychotherapy session in which the patient's treatment plan was reviewed, mental status exam performed, vital signs reviewed, current medical conditions reviewed, and treatment goals were reviewed This visit was performed as a telehealth visit utilizing an interactive a/v telecommunications system or telephone that permitted real time communication between myself and the patient--permission/consent from patient/guardian was obtained Digna continues to make progress so much so that he is now approaching readiness for discharge At this point an aftercare plan is being constructed MENTAL STATUS EXAM Level of consciousness--patient was alert and oriented to time place person Appearance-normal posture, normal dress, no prominent physical abnormalities, alert, cooperative Behavior--like to good, no psychomotor agitation or retardation, no abnormal movements, no tremor Speech--normal rate and rhythm--normal volume Mood--euthymic Affect--normal range and consistent with mood--stable Thought processes--logical and linear , goal directed and coherent--no thought blocking or flight of ideas, no loose associations, no tangential thinking, no word salad, no thought blocking, no circumstantiality Thought content--no ideas of reference no auditory or visual hallucinations, no delusional thinking, no thoughts of derealization or depersonalization, no obs essive thinking, no expressed phobias, Cognition--patient was alert and able to focus-sustained appropriate mental attention-memory immediate and short-term memory intact-abstract thinking present, Insight---fair Judgment or the ability to anticipate consequences of behavior intact Patient denied any suicidal ideation or impulses Patient denied any homicidal impulses or ideation No change in treatment plan or medication today Vital Signs Vital Signs Date Time Temp Pulse Resp B/P (MAP) Pulse Ox O2 Delivery O2 Flow Rate FiO2 05/06/20 06:19 98.3 81 12 130/77 (94) Room Air 05/04/20 06:15 100 Current Medications Current Medications Medications (Trade) Dose Ordered Sig/Kenrick Route PRN Reason Start Time Stop Time Status Last Admin Dose Admin Acetaminophen (Tylenol Tab) 650 mg Q6HP PRN PO PAIN / FEVER 04/25/20 06:00 05/05/20 19:55 DC 05/05/20 13:24 Al Hydrox/Mg Hydrox/Simethicone (Mylanta) 30 ml Q6HP PRN PO HEARTBURN 04/25/20 06:00 05/04/20 18:42 Gabapentin (Neurontin) 100 mg TID PO 05/05/20 21:00 05/06/20 08:13 Home Med (Med Rec Complete!) ASDIRECTED XX 04/24/20 20:45 04/24/20 20:38 DC Hydroxyzine HCl (Atarax) 50 mg QHSP PRN PO sleep 04/29/20 16:30 05/05/20 20:57 Hydroxyzine HCl (Atarax) 100 mg QHSP PRN PO sleep 04/29/20 16:15 04/29/20 16:16 DC Ibuprofen (Advil) 400 mg Q6HP PRN PO PAIN 05/05/20 20:00 05/05/20 20:57 Magnesium Hydroxide (Milk Of Magnesia) 30 ml DAILYPRN PRN PO CONSTIPATION 04/25/20 06:00 05/05/20 08:28 Miscellaneous (Unresolved Clarification Entry) SEE LABEL COMMENTS DAILY XX 05/03/20 09:00 Cancel Nicotine (Nicoderm Cq 21mg) 1 patch DAILYPRN PRN TD NICOTINE WITHDRAWAL 04/25/20 06:30 05/05/20 18:52 Non-Formulary Medication Testosterone Cypiionate 200 mg/1... Q7D IM 04/27/20 13:00 04/26/20 15:59 DC Olanzapine (ZyPREXA ZYDIS) 10 mg Q4HP PRN PO anxiety/agitation 04/25/20 02:00 05/06/20 12:55 Olanzapine (ZyPREXA) 5 mg DAILY PO 04/30/20 09:00 05/06/20 08:14 Olanzapine (ZyPREXA) 10 mg QHS PO 04/25/20 21:00 04/27/20 12:54 DC 04/26/20 20:02 Olanzapine (ZyPREXA) 15 mg QHS PO 04/27/20 21:00 05/05/20 20:56 Oxymetazoline HCl (Afrin) 2 spray BIDP PRN NA nasal congestion 04/29/20 16:15 05/06/20 04:55 Pantoprazole Sodium (Protonix) 20 mg DAILY PO 04/29/20 09:00 05/06/20 08:14 Testosterone Cypionate (Depo-Testosterone) 60 mg Q7D IM 04/27/20 13:00 04/27/20 13:09 DC Testosterone Cypionate (Testosterone Cypionate) 60 mg Q7D IM 04/27/20 14:00 04/27/20 14:19 DC Testosterone Cypionate (Testosterone Cypionate) 60 mg Q7D XX 04/27/20 14:19 05/04/20 14:18 DC 05/04/20 14:19 Trazodone HCl (Desyrel) 50 mg QHSP PRN PO INSOMNIA 04/25/20 06:00 04/29/20 16:14 DC 04/28/20 20:16 Allergies Coded Allergies: No Known Allergies (Verified Allergy, Unknown, 04/24/20) Saeid Cuba MD May 06, 2020 14:32
[2020-05-06 16:48] VITALS: BP 134/85
[2020-05-06] MEDS: NICOTINE 21MG/24HR 1 EA TRANSDERMAL TD PRN (17:16)
[2020-05-06] MEDS: IBUPROFEN 400 MG TAB PO PRN (17:17)
[2020-05-06] MEDS: MAALOX 30 ML SUSP *UDC PO PRN (21:28)
[2020-05-06] MEDS: hydrOXYzine 50 MG TAB PO PRN (21:29)
[2020-05-07] MEDS: MOM 30ML SUSPENSION UDC PO PRN (01:25)
[2020-05-07] MEDS: IBUPROFEN 400 MG TAB PO PRN ×4 (01:26→22:31)
[2020-05-07] MEDS: MAALOX 30 ML SUSP *UDC PO PRN ×2 (05:09→14:38)
[2020-05-07 06:30] VITALS: BP 127/81
[2020-05-07] MEDS: OLANZapine ORAL DISINTEGRATING TAB 5MG PO PRN ×3 (09:18→22:30)
[2020-05-07] MEDS: OXYMETAZOLINE 0.05% NASAL SPRAY (AFRIN) PRN (09:18)
[2020-05-07] MEDS: OLANZapine 5 MG TAB PO SCH ×2 (09:18→21:18)
[2020-05-07] MEDS: GABAPENTIN 100 MG CAP PO SCH ×3 (09:19→21:18)
[2020-05-07] MEDS: PANTOPRAZOLE 20 MG TAB PO SCH (09:19)
[2020-05-07] MEDS: NICOTINE 21MG/24HR 1 EA TRANSDERMAL TD PRN (16:41)
--- NOTE | 2020-05-07 18:04 | MHIPNPDOC ---
[facility] Progress Note Progress Note DATE OF SERVICE: 05/07/20 Yessi was seen a medical psychotherapy rounds today. The patient continues to make progress with regard to the stabilization of her mood in the treatment of any delusional thinking At this point she has a normal mental status MENTAL STATUS EXAM Level of consciousness--patient was alert and oriented to time place person Appearance-normal posture, normal dress, no prominent physical abnormalities, alert, cooperative Behavior--like to good, no psychomotor agitation or retardation, no abnormal movements, no tremor Speech--normal rate and rhythm--normal volume Mood--euthymic Affect--normal range and consistent with mood--stable Thought processes--logical and linear , goal directed and coherent--no thought blocking or flight of ideas, no loose associations, no tangential thinking, no word salad, no thought blocking, no circumstantiality Thought content--no ideas of reference no auditory or visual hallucinations, no delusional thinking, no thoughts of derealization or depersonalization, no obsessive thinking, no expressed phobias, Cognition--patient was alert and able to focus-sustained appropriate mental attention-memory immediate and short-term memory intact-abstract thinking present, Insight---fair Judgment or the ability to anticipate consequences of behavior intact Patient denied any suicidal ideation or impulses Patient denied any homicidal impulses or ideation Patient was seen for a medical psychotherapy session in which the patient's treatment plan was reviewed, mental status exam performed, vital signs reviewed, current medical conditions reviewed, and treatment goals were reviewed This visit was performed as a telehealth visit utilizing an interactive a/v telecommunications system or telephone that permitted real time communication between myself and the patient--permission/consent from patient/guardian was obtained At this point she is taking gabapentin for her anxiety 100 mg 3 times a day For her disorganized thinking she is on olanzapine 5 mg in the morning and 50 mg at night She is taking her medication without any reported side effects At this point she is ready for discharge --she will be discharged to her father on Sunday and then returned to [place] to reside with them Vital Signs Vital Signs Date Time Temp Pulse Resp B/P (MAP) Pulse Ox O2 Delivery O2 Flow Rate FiO2 05/07/20 06:30 97.2 85 12 127/81 (96) Room Air 05/04/20 06:15 100 Current Medications Current Medications Medications (Trade) Dose Ordered Sig/Kenrick Route PRN Reason Start Time Stop Time Status Last Admin Dose Admin Acetaminophen (Tylenol Tab) 650 mg Q6HP PRN PO PAIN / FEVER 04/25/20 06:00 05/05/20 19:55 DC 05/05/20 13:24 Al Hydrox/Mg Hydrox/Simethicone (Mylanta) 30 ml Q6HP PRN PO HEARTBURN 04/25/20 06:00 05/07/20 14:38 Gabapentin (Neurontin) 100 mg TID PO 05/05/20 21:00 05/07/20 16:40 Home Med (Med Rec Complete!) ASDIRECTED XX 04/24/20 20:45 04/24/20 20:38 DC Hydroxyzine HCl (Atarax) 50 mg QHSP PRN PO sleep 04/29/20 16:30 05/06/20 21:29 Hydroxyzine HCl (Atarax) 100 mg QHSP PRN PO sleep 04/29/20 16:15 04/29/20 16:16 DC Ibuprofen (Advil) 400 mg Q6HP PRN PO PAIN 05/05/20 20:00 05/07/20 16:41 Magnesium Hydroxide (Milk Of Magnesia) 30 ml DAILYPRN PRN PO CONSTIPATION 04/25/20 06:00 05/07/20 01:25 Miscellaneous (Unresolved Clarification Entry) SEE LABEL COMMENTS DAILY XX 05/03/20 09:00 Cancel Nicotine (Nicoderm Cq 21mg) 1 patch DAILYPRN PRN TD NICOTINE WITHDRAWAL 04/25/20 06:30 05/07/20 16:41 Non-Formulary Medication Testosterone Cypiionate 200 mg/1... Q7D IM 04/27/20 13:00 04/26/20 15:59 DC Olanzapine (ZyPREXA ZYDIS) 10 mg Q4HP PRN PO anxiety/agitation 04/25/20 02:00 05/07/20 16:42 Olanzapine (ZyPREXA) 5 mg DAILY PO 04/30/20 09:00 05/07/20 09:18 Olanzapine (ZyPREXA) 10 mg QHS PO 04/25/20 21:00 04/27/20 12:54 DC 04/26/20 20:02 Olanzapine (ZyPREXA) 15 mg QHS PO 04/27/20 21:00 05/06/20 21:28 Oxymetazoline HCl (Afrin) 2 spray BIDP PRN NA nasal congestion 04/29/20 16:15 05/07/20 09:18 Pantoprazole Sodium (Protonix) 20 mg DAILY PO 04/29/20 09:00 05/07/20 09:19 Testosterone Cypionate (Depo-Testosterone) 60 mg Q7D IM 04/27/20 13:00 04/27/20 13:09 DC Testosterone Cypionate (Testosterone Cypionate) 60 mg Q7D IM 04/27/20 14:00 04/27/20 14:19 DC Testosterone Cypionate (Testosterone Cypionate) 60 mg Q7D XX 04/27/20 14:19 05/04/20 14:18 DC 05/04/20 14:19 Trazodone HCl (Desyrel) 50 mg QHSP PRN PO INSOMNIA 04/25/20 06:00 04/29/20 16:14 DC 04/28/20 20:16 Allergies Coded Allergies: No Known Allergies (Verified Allergy, Unknown, 04/24/20) Saeid Cuba MD May 07, 2020 18:04
[2020-05-07 18:05] VITALS: BP 127/81
[2020-05-07] MEDS ORDERED: GABA-1171 PO (18:11)
[2020-05-07] MEDS ORDERED: OLAN5TAB PO ×2 (18:11)
[2020-05-07] MEDS ORDERED: PANT20TA6 PO (18:12)
[2020-05-07] MEDS: hydrOXYzine 50 MG TAB PO PRN (21:18)
[2020-05-08 06:40] VITALS: BP 133/62
[2020-05-08] MEDS: hydrOXYzine 50 MG TAB PO PRN (07:19)
[2020-05-08] MEDS: GABAPENTIN 100 MG CAP PO SCH ×3 (08:43→20:54)
[2020-05-08] MEDS: OLANZapine 5 MG TAB PO SCH ×2 (08:43→20:54)
[2020-05-08] MEDS: PANTOPRAZOLE 20 MG TAB PO SCH (08:43)
[2020-05-08] MEDS: MAALOX 30 ML SUSP *UDC PO PRN ×2 (13:48→20:54)
[2020-05-08] MEDS: OXYMETAZOLINE 0.05% NASAL SPRAY (AFRIN) PRN (15:00)
[2020-05-08] MEDS: NICOTINE 21MG/24HR 1 EA TRANSDERMAL TD PRN (15:01)
[2020-05-08] MEDS: IBUPROFEN 400 MG TAB PO PRN (15:03)
[2020-05-08 15:44] VITALS: BP 133/76
[2020-05-09] MEDS: hydrOXYzine 50 MG TAB PO PRN ×2 (00:40→11:04)
[2020-05-09] MEDS: IBUPROFEN 400 MG TAB PO PRN ×2 (00:42→14:14)
[2020-05-09] MEDS: OLANZapine ORAL DISINTEGRATING TAB 5MG PO PRN (02:37)
[2020-05-09] MEDS: OXYMETAZOLINE 0.05% NASAL SPRAY (AFRIN) PRN (06:18)
[2020-05-09 06:34] VITALS: BP 136/74
[2020-05-09] MEDS: GABAPENTIN 100 MG CAP PO SCH ×3 (08:19→18:41)
[2020-05-09] MEDS: OLANZapine 5 MG TAB PO SCH ×2 (08:19→18:41)
[2020-05-09] MEDS: PANTOPRAZOLE 20 MG TAB PO SCH (08:19)
[2020-05-09 15:55] VITALS: BP 127/79
--- NOTE | 2020-05-10 13:15 | MHDSPDOC ---
[facility] Discharge Summary Discharge Summary DATE OF ADMISSION: Apr 24, 2020 at 23:43 DATE OF DISCHARGE: May 09, 2020 at 18:50 Yessi is a 25-year-old female transitioned her individual who was admitted and treated on our adult inpatient psychiatric unit for a two-week period of time The patient was admitted and seen for a initial psychiatric evaluation which included the chief complaint by Dr. Eagle included here NAME: YESSI HEBERT : 1995 MED REC#: [id number] ROOM: [facility] Dictating: Esthela South MD. PATIENT STATUS: ADM IN Cosign: REPORT #: [id number] Other : cc: [~ rep ct ivnm] DATE OF ADMISSION: 04/24/2020 DATE OF EVALUATION: 04/25/2020 HISTORY OF PRESENT ILLNESS: This evaluation is done telepsychiatry do to the current coronavirus crisis. This is a 25-year-old woman who is a transgender individual and prefers to be referred to as Héctor. The patient was brought to the hospital by [employer] police only this patient lives in [place] and had taken off driving to go visit a friend. She kept driving past where the friend lives. The car broke down and then she ended up walking to the friend wandering in the road and barefoot making no sense. She was taken to a motel and she got in contact with the mother who is going to give her money for bus ride home. However, the patient did not go home. The patient then called her mother and told her mother that there were evil voices telling her to keep driving [place] to [place], [place] [facility]. When asked how she was going to get there because she had no car. She talks about somebody named Leonel, whom she says is an actor on TV that is going to bring her a car. She is talking about having to close all the portals so all evil spirits will not be able to get through the portals. She talks about being telepathically connected to people. The mother apparently was contacted through the emergency room and advised that the patient has never had any psychotic episode before. She states that the patient was on Prozac for depression in the past but she stopped it in July because she found all of the patient's bottles. Today, speaking to the patient who appeared cooperative, however, I could not get any information that made any sense. The patient closed his eyes and kept lifting his head up and put his arms out and kept moving them in and out, in and out, basically was talking but it did not really make any sense what he was saying. So I was not able to get any further in this evaluation. PAST PSYCHIATRIC HISTORY: Unable to obtained. FAMILY HISTORY: Unable to obtain. SUBSTANCE ABUSE HISTORY: Unable to obtain. Toxicology screen was positive for cannabis. ABUSE HISTORY: Unable to obtain. MEDICAL HISTORY: Patient is transgender and on testosterone supplements once a week. REVIEW OF SYSTEMS: Vital Signs: Blood pressure 149/84, pulse 74, respirations 18. Unable to proceed with any review of systems. MENTAL STATUS EXAMINATION: Unable to obtain. DIAGNOSES: Unspecific psychotic disorder. Cannabis use disorder. TREATMENT PLAN: At this point, we will continue to monitor the patient for what appears to be psychotic symptoms. It will be important in this case to try to get some collateral information from the patient's mother. I did order some Zyprexa 10 mg every 4 hours for anxiety or agitation. I will go ahead and order some Zyprexa 10 mg nightly. He apparently was given some Zyprexa in the emergency room. DD: Esthela South MD. 04/25/20 1833 DT: MAIA 04/26/20 1022 DS: TOREY 04/26/20 1617 <Electronically signed by Esthela South MD.> 04/26/20 The patient responded well to the milieu and individual therapy--the psychosis slowly resolved with the use of antipsychotic medications specifically Zyprexa--one aspect of that improvement was that the patient markedly improved in terms of the psychotic symptoms when the exogenous testosterone was discontinued Final mental status MENTAL STATUS EXAM Level of consciousness--patient was alert and oriented to time place person Appearance-normal posture, normal dress, no prominent physical abnormalities, alert, cooperative Behavior--like to good, no psychomotor agitation or retardation, no abnormal movements, no tremor Speech--normal rate and rhythm--normal volume Mood--euthymic Affect--normal range and consistent with mood--stable Thought processes--logical and linear , goal directed and coherent--no thought blocking or flight of ideas, no loose associations, no tangential thinking, no word salad, no thought blocking, no circumstantiality Thought content--no ideas of reference no auditory or visual hallucinations, no delusional thinking, no thoughts of derealization or depersonalization, no obse ssive thinking, no expressed phobias, Cognition--patient was alert and able to focus-sustained appropriate mental attention-memory immediate and short-term memory intact-abstract thinking present, Insight---fair Judgment or the ability to anticipate consequences of behavior intact Patient denied any suicidal ideation or impulses Patient denied any homicidal impulses or ideation Final medications on discharge included Gabapentin 100 mg 3 times a day Zyprexa 5 mg in the morning and 15 mg at night Protonix 20 mg per day Aftercare was arranged Medications reconciled A safety contract was constructed Emergency procedures were explained to the patient The patient was discharged accompanied by his father who will be escorting the patient back to [place] where he will pursue followup psychiatric care Final diagnosis psychosis not otherwise specified 45 minutes Spent in discharge process Vital Signs/I&Os Vital Signs Date Time Temp Pulse Resp B/P (MAP) Pulse Ox O2 Delivery O2 Flow Rate FiO2 05/09/20 15:55 98.2 85 16 127/79 (95) 05/09/20 06:34 96 Room Air Medications Scheduled Gabapentin (Gabapentin) 100 Mg Capsule, 100 MG PO TID for anxiety for 30 Days, #90 Olanzapine (Olanzapine) 5 Mg Tablet, 15 MG PO QHS for agitation for 30 Days, #30 Olanzapine (Olanzapine) 5 Mg Tablet, 5 MG PO DAILY for rapid thoughts for 30 Days, #30 Pantoprazole Sodium (Pantoprazole Sodium) 20 Mg Tablet.dr, 20 MG PO DAILY for stomach upset for 30 Days, #30 Allergies Coded Allergies: No Known Allergies (Verified Allergy, Unknown, 04/24/20) Saeid Cuba MD May 10, 2020 13:15
== END 2020-05-09 18:50 | disposition home or self-care (01) | DRG 751 ==
LOC: M ED 16:53 → M ED INP 23:43 → M PSY 04-25 04:04
PROVIDERS: ADMIT Psychiatry & Neurology Psychiatry; ATTEND Psychiatry & Neurology Psychiatry
DX: F29 Unspecified psychosis not due to a substance or known physiological condition (principal); F12.10 Cannabis abuse, uncomplicated; F64.8 Other gender identity disorders; Z79.899 Other long term (current) drug therapy